=== PATIENT | male | born 1960 | race Two or more races ===

== ENCOUNTER → 2018-07-21 | Outpatient (CLI) | payer OTHER ==
[~2018-07-21] MED LIST: GLIMEPIRIDE1 MG PO; LANTUS SQ; LISINOPRIL10 MG PO; METFORMIN HCL1000 M1 PO; ZOCOR40 MG PO
== END | disposition home or self-care (01) ==
LOC: RAD 501 13:27
DX: M25.571 Pain in right ankle and joints of right foot (principal)

== ENCOUNTER 2018-08-09 11:22 | Outpatient (CLI) | payer OTHER | END 2018-08-09 11:27 | disposition home or self-care (01) | LOC: SONOGRAMA 11:22 | DX: M25.571 Pain in right ankle and joints of right foot (principal); M76.71 Peroneal tendinitis, right leg ==

== ENCOUNTER 2018-09-16 07:02 | Day surgery (SDC) | payer OTHER ==
[~2018-09-16 07:02] MED LIST changes: +ATIVAN2 M1 PO; +COZAAR100 MG PO; +NEURONTIN800 MG PO
== END 2018-09-16 16:50 | disposition home or self-care (01) ==
LOC: CIR.AMB 07:02
DX: M76.71 Peroneal tendinitis, right leg (principal)